=== PATIENT | male | born 1995 | race Caucasian/White ===

== ENCOUNTER 2017-09-02 13:03 | Inpatient (IN) | payer BC, OTHER ==
[~2017-09-02] VITALS: Ht 182.9 cm; Wt 80.6 kg
--- NOTE | 2017-09-02 13:36 | DIAGNOSTIC IMAGING REPORT ---
CHEST ONE VIEW PORTABLE CLINICAL HISTORY: CHEST PAIN COMPARISON STUDY: No previous studies for comparison. FINDINGS: There is a moderate size right pneumothorax. Superior pleural separation measures 3.8 cm. There is no left pneumothorax. No airspace opacities are identified. Cardiac size is normal. Pulmonary vascularity is normal. IMPRESSION: Moderate size right pneumothorax. Findings discussed with Dr. Wild at time of dictation. Electronically signed by: Darwin Corbett M.D. 09/02/2017 1:35 PM Dictated Date/Time: 09/02/2017 1:32 PM
[2017-09-02] MEDS ORDERED: FLUO20CA35 PO (13:49)
[2017-09-02] MEDS ORDERED: AMPH15CA7 PO (13:49)
[2017-09-02 14:07] LABS: BASO % 0.3 %; BASO ABS # 0.02 K/uL (0-0.2); EOS % 3.3 %; EOS ABS # 0.21 K/uL (0-0.5); HEMATOCRIT 43.9 % (42-52); IG# 0.01 K/uL (0.00-0.02); LYMPH % 35.4 %; LYMPH ABS # 2.24 K/uL (1.2-3.4); MEAN CELL VOLUME 86.2 fL (80-100); MEAN CORPUSCULAR HEMOGLOBIN 29.5 pg (25-34); MEAN CORPUSCULAR HGB CONC 34.2 g/dl (32-36); MEAN PLATELET VOLUME 9.7 fL (7.4-10.4); MONO % 7.8 %; MONO ABS # 0.49 K/uL (0.11-0.59); NEUT ABS # 3.35 K/uL (1.4-6.5); PLATELET COUNT 214 K/uL (130-400); RED CELL DISTRIBUTION WIDTH CV 12.7 % (11.5-14.5); RED CELL DISTRIBUTION WIDTH SD 40.6 fL (36.4-46.3); WHITE BLOOD COUNT 6.32 K/uL (4.8-10.8)
[2017-09-02 14:24] LABS: ALBUMIN 4.1 gm/dl (3.4-5.0); ALT/SGPT 30 U/L (12-78); BLOOD UREA NITROGEN 25 mg/dl (7-18); CALCIUM 9.4 mg/dl (8.5-10.1); CARBON DIOXIDE 28 mmol/L (21-32); CREATININE 1.09 mg/dl (0.60-1.40); GLUCOSE 76 mg/dl (70-99); LIPASE 149 U/L (73-393); POTASSIUM 4.1 mmol/L (3.5-5.1); SODIUM 136 mmol/L (136-145)
[2017-09-02 14:27] LABS: ALKALINE PHOSPHATASE 84 U/L (45-117); AST/SGOT 32 U/L (15-37); TOTAL PROTEIN 7.5 gm/dl (6.4-8.2)
--- NOTE | 2017-09-02 15:12 | DIAGNOSTIC IMAGING REPORT ---
CT OF THE CHEST WITHOUT IV CONTRAST CLINICAL HISTORY: Right pneumothorax. COMPARISON STUDY: Chest radiograph September 02, 2017 at 1:[address] DOSE: 337.52 mGy.cm TECHNIQUE: Axial images of the chest were obtained without IV contrast. Images were reviewed in the axial, sagittal, and coronal planes. IV contrast was not administered for this examination. A dose lowering technique was utilized adhering to the principles of ALARA. FINDINGS: There is a large right pneumothorax which occupies 60% of the right hemithorax. There is right lung volume loss as expected with atelectasis. No acute right rib fractures are identified although the inferior most right ribs were not imaged on this chest CT. There is a 5 mm subpleural lucency within the right lung apex shown on axial image 61 of 332. Left lung is clear. No axillary, mediastinal or hilar lymphadenopathy is present. Spleen is at upper limits of normal for size. Upper abdomen is otherwise unremarkable. IMPRESSION: Large right pneumothorax which occupies 60% of the right hemithorax, increased in size since prior chest radiograph. Findings discussed with Dr. Wild at time of dictation. No right rib fracture identified although inferior most aspect of right ribs not imaged on this exam. 5 mm tiny subpleural bleb within the right lung apex. While not definitive, this could potentially reflect the source for the pneumothorax. Electronically signed by: Darwin Corbett M.D. 09/02/2017 3:10 PM Dictated Date/Time: 09/02/2017 2:41 PM
[2017-09-02] MEDS ORDERED: LIDOCAINE/EPINEPHRINE 1% 20 ML VIAL INFIL ONE (16:30)
[2017-09-02] MEDS ORDERED: MoRPHine SULFATE 4 MG/ML 1 ML CARP\\VIAL IV PRN (17:30)
[2017-09-02] MEDS ORDERED: ONDANSETRON INJ 2 MG/ML 2 ML VIAL IV PRN (17:30)
--- NOTE | 2017-09-02 17:30 | DIAGNOSTIC IMAGING REPORT ---
CHEST ONE VIEW PORTABLE HISTORY: chest tube placement. COMPARISON: Chest 09/02/2017. FINDINGS: Interval decrease in size in the right pneumothorax status post chest tube placement. The small chest tube is located within the right mid lateral pleural space. Maximal pleural gap of the right pneumothorax measures 8 mm. Small linear density within the right midlung zone consistent with subsegmental atelectasis. The heart is normal in size. The left lung is clear. IMPRESSION: Significant decrease in size in the small right pneumothorax status post chest tube placement. The chest tube appears be located within the right mid lateral pleural space. Electronically signed by: Michael Mcclelland M.D. 09/02/2017 5:29 PM Dictated Date/Time: 09/02/2017 5:27 PM
[2017-09-02] MEDS ORDERED: MoRPHine SULFATE 4 MG/ML 1 ML CARP\\VIAL ONE (17:52)
[2017-09-02] MEDS ORDERED: ONDANSETRON INJ 2 MG/ML 2 ML VIAL ONE (17:52)
[2017-09-02] MEDS: OXYCODONE/ACETAMINOPHEN 5-325 TAB PO PRN ×2 (18:34→23:29)
[2017-09-02 19:20] VITALS: BP 138/81; PULSE 48; TEMP 36.6; O2SAT 97
--- NOTE | 2017-09-02 19:26 | HISTORY & PHYSICAL EXAMINATION ---
DATE OF ADMISSION: 09/02/2017 CHIEF COMPLAINT: Pain in the right lower thorax, upper abdomen. HISTORY OF PRESENT ILLNESS: This is a 21-year-old male who presented to the Emergency Room with a complaint of pain that was primarily on the right side in the lower thorax area mostly anterior. He stated earlier in the day. He felt an initial discomfort that he described as a "stitch of pain." However, as the day progressed, the pain increased. He then became somewhat short of breath. The shortness of breath is much worse with exertion. He denies previous history of similar pain. He had no cough or hemoptysis. He denied fever and chills. There was no trauma. 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 He had no nausea or vomiting. He underwent a chest x-ray that showed a moderate sized right pneumothorax. He then underwent a CT scan of the chest that showed a large right pneumothorax occupying 60% of the right hemithorax that seemed increased in size compared to the previous chest x-ray. There was no evidence of rib fracture. There appeared to possibly be a 5 mm subpleural blood within the right lung apex. This was not definitive; however. PAST MEDICAL HISTORY: None. PAST SURGICAL HISTORY: Repair of his right shoulder labrum and the right inguinal hernia, the latter of which was repaired when he was 11 years old. MEDICATIONS: Adderall and Prozac. ALLERGIES: None. SOCIAL HISTORY: He does not smoke. He does chew tobacco. He drinks alcohol on occasion. PHYSICAL EXAMINATION: GENERAL: Reveals a well-developed, well-nourished male who appears in no acute distress. VITAL SIGNS: Blood pressure 123/88, heart rate 55, respirations 18, temperature 37.2, pulse oximetry is 97% on room air. HEENT: Reveals his sclerae to be anicteric. Mucous membranes are moist. NECK: Supple with no adenopathy. BACK: He has no spinal or CVA tenderness. LUNGS: Decreased breath sounds on the right side, but there is no wheezing or rales. The left lung sounds are clear. ABDOMEN: Has normoactive bowel sounds, soft, nondistended, nontender. EXTREMITIES: Reveal no edema. LABORATORY DATA: WBC 6.32, H&H is 15.0 and 43.9, platelet count 214,000. Sodium 136, potassium 4.1, chloride 102, CO2 28, BUN 25, creatinine 1.09, glucose 76, AST 32, ALT 30, alkaline phosphatase 84. Radiology as per HPI. ASSESSMENT AND PLAN: This patient has a spontaneous large right pneumothorax. I placed a PLEUROCATH thoracostomy tube. I am awaiting repeat chest x-ray. His breathing is easier. I explained to him the procedure prior to that. I explained the possible complications. His father was present. He has signed a consent form. He is going to be admitted. We will keep chest tube on suction for today. I will plan to consult Dr. Alvarado. He will be given analgesics.
[2017-09-02 19:30] VITALS: BP 138/81; PULSE 48; TEMP 36.6; O2SAT 97; Ht 182.9 cm; Wt 80.6 kg
[2017-09-02] MEDS ORDERED: NURSING VERBAL MED ORDER ONE ×3 (19:30→22:00)
--- NOTE | 2017-09-02 19:34 | OPERATIVE REPORT ---
DATE OF OPERATION: 09/02/2017 PREOPERATIVE DIAGNOSIS: Right pneumothorax. POSTOPERATIVE DIAGNOSIS: Same. PROCEDURE: Placement of PLEUROCATH thoracostomy tube. SURGEON: Hector Chaudhary MD FINDINGS: The catheter was placed with ease. There was good air return as the catheter needle was being inserted. Chest x-ray is pending. There was no bleeding. TECHNIQUE: The patient was positioned and the area was prepped and draped in the usual sterile fashion. The fifth or sixth intercostal space was chosen in the mid axillary line. The skin and subcutaneous tissue was copiously anesthetized with 1% Xylocaine without epinephrine. The musculature and pleura were anesthetized. The floor was then easily entered and the catheter advanced. The needle was removed and was hooked to a Pleur-Evac. Chest x-ray is pending. The dressing was placed and it was sewn to the patient's skin. There were no complications. I attest to the content of the Intraoperative Record and any orders documented therein. Any exception s are noted below.
[2017-09-02] MEDS ORDERED: MoRPHine SULFATE 4 MG/ML 1 ML CARP\\VIAL IV STA ×2 (19:42→21:50)
--- NOTE | 2017-09-02 19:48 | DIAGNOSTIC IMAGING REPORT ---
CHEST ONE VIEW PORTABLE HISTORY: Atypical chest pain. COMPARISON: Chest x-ray and chest CT 09/02/2017. FINDINGS: Small right pneumothorax has slightly increased in size. This demonstrates a maximal pleural gap of 15 mm, previous measuring 8 mm. The right chest tube tip may be within the pleural space. However, the majority of the chest tube is within the chest wall. The left lung is clear. The heart is borderline enlarged. This remains unchanged. No mediastinal shift. IMPRESSION: 1. Interval increase in size in the small right pneumothorax. 2. Of note, the tip of the right chest tube may be within the pleural space. However, the majority of the chest tube is located within the chest wall. Therefore, this could represent a misplaced/nonfunctioning chest tube. Electronically signed by: Michael Mcclelland M.D. 09/02/2017 7:47 PM Dictated Date/Time: 09/02/2017 7:44 PM
--- NOTE | 2017-09-02 20:20 | EMERGENCY ROOM VISIT NOTE ---
History Report prepared by Daniel: Cecil Vela Under the Supervision of: Dr. Scott Wild M.D. First contact with patient: 13:14 Chief Complaint: SHORTNESS OF BREATH Stated Complaint: GALLBLADDER PAIN Nursing Triage Summary: triage note; pt reports pain in right ribs and difficulty breathing since 1230. pt also reports pain in right shoulder. pt denies any injury. pt reports pain increases with activity and "taking heavy breaths." History of Present Illness The patient is a 21 year old male who presents to the Emergency Room with complaints of shortness of breath that began 1 hour ago. He denies any known past medical history. 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 Prior to arrival, the patient was sitting down getting ready to go onto the lacrosse field when he began to feel short of breath. He had an associated sharp right pain to his right rib area that was exacerbated why exertion, speaking, and moving. He was given a muscle relaxer which relieved his pain, but was brought to the ER. The patient states that the last time he was struck to the right rib area was early this past fall. He has also been on injury reserve for the past two weeks secondary to a left hamstring injury. He denies any recent trauma or falls. Pt denies LOC, headache, fevers, chills, diaphoresis, visual changes, neck pain, nausea, vomiting, abdominal pain, back pain, melena, hematochezia, urinary symptoms, numbness, weakness, lymphadenopathy, rash, or other complaints. Source of History: patient Onset: 1 hour ago Position: other (Respiratory System) Symptom Intensity: moderate Quality: other (Shortness of breath) Timing: constant Associated Symptoms: + chest pain (right sided rib pain resolved with muscle relaxer) Review of Systems See HPI for pertinent positives and negatives. A total of ten systems were reviewed and were otherwise negative. Past Medical & Surgical Medical Problems: (1) No Known Active Medical Problems (2) Pneumothorax, right Family History Patient reports no known family medical history. Social History Smoking Status: Never Smoker Smokeless Tobacco Use: No Drug Use: none Marital Status: single Occupation Status: [employer] student Current/Historical Medications Scheduled Amphetamine-Dextroamphetamine 15MG (Adderall Xr 15MG), 15 MG PO DAILY Fluoxetine (Prozac), 20 MG PO DAILY Allergies Coded Allergies: No Known Allergies (Unverified , 09/02/17) Physical Exam Vital Signs Date Time Temp Pulse Resp B/P (MAP) Pulse Ox O2 Delivery O2 Flow Rate FiO2 09/02/17 17:20 140/117 09/02/17 17:18 72 14 09/02/17 17:13 62 19 09/02/17 17:10 145/80 09/02/17 17:08 68 18 09/02/17 17:03 73 17 100 09/02/17 17:00 139/69 09/02/17 16:58 82 25 100 09/02/17 16:53 81 15 100 09/02/17 16:50 151/82 09/02/17 16:49 149/83 09/02/17 16:48 67 15 100 09/02/17 16:43 83 12 99 09/02/17 16:38 60 11 98 09/02/17 16:33 68 15 98 09/02/17 16:28 65 19 96 09/02/17 16:23 54 17 96 09/02/17 16:18 50 15 97 09/02/17 16:13 47 17 97 09/02/17 16:08 47 10 96 09/02/17 16:03 58 15 98 09/02/17 15:58 50 14 97 09/02/17 15:53 51 13 97 09/02/17 15:48 46 22 98 09/02/17 15:43 48 15 96 09/02/17 15:38 52 13 95 09/02/17 15:33 49 13 96 09/02/17 15:28 53 17 98 09/02/17 15:23 53 14 97 09/02/17 15:18 62 16 97 09/02/17 15:13 56 14 97 09/02/17 15:08 59 17 96 09/02/17 15:03 57 15 97 09/02/17 14:58 62 15 98 09/02/17 14:53 57 14 97 09/02/17 14:48 53 15 98 09/02/17 14:43 65 16 94 09/02/17 14:28 50 13 97 09/02/17 14:18 61 21 98 09/02/17 14:13 57 18 98 09/02/17 14:08 63 12 123/88 96 1/27/18 14:06 37.2 55 18 123/88 97 Non-Rebreather 15.0 09/02/17 14:03 60 15 98 09/02/17 13:58 54 11 98 09/02/17 13:53 69 24 98 09/02/17 13:48 59 19 98 09/02/17 13:43 72 9 100 09/02/17 13:42 82 09/02/17 13:39 96 Room Air 09/02/17 13:39 96 Room Air 09/02/17 13:05 36.6 63 18 141/83 100 Room Air Physical Exam GENERAL: Awake, alert, mildly uncomfortable appearing, in no distress HENT: Normocephalic, atraumatic. Oropharynx unremarkable. EYES: Normal conjunctiva. Sclera non-icteric. NECK: Supple. No nuchal rigidity. FROM. No JVD. RESPIRATORY: Clear to auscultation. CARDIAC: Regular rate, normal rhythm. Extremities warm and well perfused. Pulses equal. ABDOMEN: Soft, non-distended. No tenderness to palpation. No rebound or guarding. No masses. RECTAL: Deferred. MUSCULOSKELETAL: Chest examination reveals no tenderness. The back is symmetrical on inspection without obvious abnormality. There is no CVA tenderness to palpation. No joint edema. LOWER EXTREMITIES: Calves are equal size bilaterally and non-tender. No edema. No discoloration. NEURO: Normal sensorium. No sensory or motor deficits noted. SKIN: No rash or jaundice noted. Medical Decision & Procedures ER Provider Diagnostic Interpretation: Radiology results as stated below per my review and radiologist interpretation: CHEST ONE VIEW PORTABLE CLINICAL HISTORY: CHEST PAIN COMPARISON STUDY: No previous studies for comparison. FINDINGS: There is a moderate size right pneumothorax. Superior pleural separation measures 3.8 cm. There is no left pneumothorax. No airspace opacities are identified. Cardiac size is normal. Pulmonary vascularity is normal. IMPRESSION: Moderate size right pneumothorax. Findings discussed with Dr. Wild at time of dictation. Electronically signed by: Darwin Corbett M.D. 09/02/2017 1:35 PM Dictated Date/Time: 09/02/2017 1:[address] OF THE CHEST WITHOUT IV CONTRAST CLINICAL HISTORY: Right pneumothorax. COMPARISON STUDY: Chest radiograph September 02, 2017 at 1:[address] DOSE: 337.52 mGy.cm TECHNIQUE: Axial images of the chest were obtained without IV contrast. Images were reviewed in the axial, sagittal, and coronal planes. IV contrast was not administered for this examination. A dose lowering technique was utilized adhering to the principles of ALARA. FINDINGS: There is a large right pneumothorax which occupies 60% of the right hemithorax. There is right lung volume loss as expected with atelectasis. No acute right rib fractures are identified although the inferior most right ribs were not imaged on this chest CT. There is a 5 mm subpleural lucency within the right lung apex shown on axial image 61 of 332. Left lung is clear. No axillary, mediastinal or hilar lymphadenopathy is present. Spleen is at upper limits of normal for size. Upper abdomen is otherwise unremarkable. IMPRESSION: Large right pneumothorax which occupies 60% of the right hemithorax, increased in size since prior chest radiograph. Findings discussed with Dr. Wild at time of dictation. No right rib fracture identified although inferior most aspect of right ribs not imaged on this exam. 5 mm tiny subpleural bleb within the right lung apex. While not definitive, this could potentially reflect the source for the pneumothorax. Electronically signed by: Darwin Corbett M.D. 09/02/2017 3:10 PM Dictated Date/Time: 09/02/2017 2:41 PM Laboratory Results 09/02/17 13:25 Red Blood Count 5.09, Mean Corpuscular Volume 86.2, Mean Corpuscular Hemoglobin 29.5, Mean Corpuscular Hemoglobin Concent 34.2, Mean Platelet Volume 9.7, Neutrophils (%) (Auto) 53.0, Lymphocytes (%) (Auto) 35.4, Monocytes (%) (Auto) 7.8, Eosinophils (%) (Auto) 3.3, Basophils (%) (Auto) 0.3, Neutrophils # (Auto) 3.35, Lymphocytes # (Auto) 2.24, Monocytes # (Auto) 0.49, Eosinophils # (Auto) 0.21, Basophils # (Auto) 0.02 09/02/17 13:25 Test 09/02/17 13:25 09/02/17 13:42 White Blood Count 6.32 K/uL (4.8-10.8) Red Blood Count 5.09 M/uL (4.7-6.1) Hemoglobin 15.0 g/dL (14.0-18.0) Hematocrit 43.9 % (42-52) Mean Corpuscular Volume 86.2 fL (80-100) Mean Corpuscular Hemoglobin 29.5 pg (25-34) Mean Corpuscular Hemoglobin Concent 34.2 g/dl (32-36) Platelet Count 214 K/uL (130-400) Mean Platelet Volume 9.7 fL (7.4-10.4) Neutrophils (%) (Auto) 53.0 % Lymphocytes (%) (Auto) 35.4 % Monocytes (%) (Auto) 7.8 % Eosinophils (%) (Auto) 3.3 % Basophils (%) (Auto) 0.3 % Neutrophils # (Auto) 3.35 K/uL (1.4-6.5) Lymphocytes # (Auto) 2.24 K/uL (1.2-3.4) Monocytes # (Auto) 0.49 K/uL (0.11-0.59) Eosinophils # (Auto) 0.21 K/uL (0-0.5) Basophils # (Auto) 0.02 K/uL (0-0.2) RDW Standard Deviation 40.6 fL (36.4-46.3) RDW Coefficient of Variation 12.7 % (11.5-14.5) Immature Granulocyte % (Auto) 0.2 % Immature Granulocyte # (Auto) 0.01 K/uL (0.00-0.02) Anion Gap 6.0 mmol/L (3-11) Est Creatinine Clear Calc Drug Dose 116.7 ml/min Estimated GFR () 111.1 Estimated GFR (Non- 95.8 BUN/Creatinine Ratio 23.3 (10-20) Calcium Level 9.4 mg/dl (8.5-10.1) Total Bilirubin 0.5 mg/dl (0.2-1) Direct Bilirubin < 0.1 mg/dl (0-0.2) Aspartate Amino Transf (AST/SGOT) 32 U/L (15-37) Alanine Aminotransferase (ALT/SGPT) 30 U/L (12-78) Alkaline Phosphatase 84 U/L (45-117) Total Protein 7.5 gm/dl (6.4-8.2) Albumin 4.1 gm/dl (3.4-5.0) Lipase 149 U/L (73-393) Bedside D-Dimer 20 ng/mlFEU (0-450) Bedside Troponin I < 0.030 ng/ml (0-0.045) Laboratory results reviewed by me Medications Administered Medications (Trade) Dose Ordered Sig/Jose Alberto Route Start Time Stop Time Status Last Admin Dose Admin Oxycodone/ Acetaminophen (Percocet 5-325mg Tab) 1 tab Q4H PRN PO 09/02/17 17:30 09/16/17 17:29 09/02/17 18:34 1 TAB ECG Indication: chest pain Rate (beats per minute): 59 Rhythm: sinus bradycardia Findings: other (right axis deviation, early repolarization) Change: ECG interpreted by me ED Course 1314: The patient was evaluated in room A4. A complete history and physical exam was performed. 1332: I was called Dr. Corbett of Radiology at this time who informed me that the patient has a right-sided partial pneumothorax. 1515: Upon reevaluation, the patient feels like he is breathing more easily and is resting comfortably. 1540: Dr. Chaudhary of Surgery and I discussed the patient's case. We reviewed the patient's radiology scans. We will attempt to contact Dr. Wallace of Thoracic Surgery if they are available. 1606: The patient remains well and is in no pain. 1617: Dr. Wallace is unavailable. Dr. Chaudhary with take over care for the patient. I discussed this with the patient and his father. They are agreeable. 1630: Ordered Lidocaine/Epinephrine 20 ml INFIL Medical Decision Prior records/ancillary studies reviewed. Triage Nursing notes reviewed and agree them. Additional history obtained from the family. The patient's history was concerning for chest pain. Differential diagnosis: Etiologies such as pneumonia, pneumothorax, musculoskeletal, cardiac ischemia, aortic dissection, pulmonary embolism,infections, pericarditis, myocarditis, esophageal rupture, gastrointestinal, as well as others were entertained. Physical examination: As above. ER treatment provided: Patient declined analgesia Nonrebreather Diagnostic interpretation by me: The electrocardiogram was negative for pathologic change. The labs revealed an unremarkable CBC and character panel. Cardiac markers negative. D-dimer negative. Imaging studies: Chest x-ray and CT scan as above The patient has a spontaneous pneumothorax. Consultation: A consultation was placed with the general surgeon on-call, Dr. Chaudhary. The case was discussed and diagnostics were reviewed. The patient was evaluated in the ER for further treatment. Medication Reconcilliation Current Medication List: was personally reviewed by me Blood Pressure Screening Patient's blood pressure: Normal blood pressure Blood pressure disposition: Did not require urgent referral Consults Time Called: 1535 Consulting Physician: Dr. Chaudhary - General Surgery Returned Call: [phone] Discussed the patient's case. We will attempt to contact Dr. Wallace of Thoracic Surgery. 1617: Dr. Wallace is unavailable. Dr. Chaudhary will be taking over care for the patient. Impression Primary Impression: Pneumothorax, right Scribe Attestation The scribe's documentation has been prepared under my direction and personally reviewed by me in its entirety. I confirm that the note above accurately reflects all work, treatment, procedures, and medical decision making performed by me. Departure Information Dispostion Being Evaluated By Surgeon Referrals No Doctor, Assigned (PCP) Patient Instructions [facility]
[2017-09-02] MEDS ORDERED: IV FLUIDS COMPLETED PRN (20:45)
--- NOTE | 2017-09-02 21:52 | DIAGNOSTIC IMAGING REPORT ---
CHEST ONE VIEW PORTABLE HISTORY: Evaluate chest tube and pneumothorax. COMPARISON: Chest 09/02/2017. A small right pneumothorax has slightly decreased in size. This now demonstrates a maximal apical 1 cm, previous measuring 1.5 cm. The tip of the small caliber right-sided chest tube appears to be at but not clearly within the right pleural space. This is unchanged in position. The left lung remains clear. The heart remains borderline enlarged. No mediastinal shift. No pleural effusions. FINDINGS: The lungs are clear. Cardiac silhouette is normal in size. No pleural effusions. No pneumothorax. IMPRESSION: 1. Slight decrease in size in the small right pneumothorax. 2. No change in position of the right-sided chest tube. The tip appears to be at but not clearly within the right pleural space. Electronically signed by: Michael Mcclelland M.D. 09/02/2017 9:50 PM Dictated Date/Time: 09/02/2017 9:48 PM
[2017-09-02] MEDS: D5W AND 1/2NSS + 20MEQ KCL 1,000 ML IV SCH (22:07)
[2017-09-02] MEDS: MoRPHine SULFATE 2 MG/ML CARP IV PRN (22:37)
[2017-09-02 23:00] VITALS: BP 118/59; PULSE 44; TEMP 36.4; O2SAT 96
[2017-09-03] MEDS: MoRPHine SULFATE 2 MG/ML CARP IV PRN ×9 (01:59→23:32)
[2017-09-03 03:50] VITALS: BP 108/55; PULSE 51; TEMP 36.4; O2SAT 96
[2017-09-03 07:30] VITALS: BP 112/68; PULSE 45; TEMP 36.6; O2SAT 97
--- NOTE | 2017-09-03 10:29 | Surgery Progress Note ---
Surgery Progress Note Date of Service Sep 03, 2017. Subjective + feeling well, No SOB, No nausea, No vomiting No cough Objective Vital Signs: Date Time Temp Pulse Resp B/P (MAP) Pulse Ox O2 Delivery O2 Flow Rate FiO2 09/03/17 07:45 Room Air 09/03/17 07:30 36.6 45 16 112/68 (83) 97 Room Air 09/03/17 03:50 36.4 51 16 108/55 (72) 96 Room Air 09/02/17 23:30 Room Air 09/02/17 23:00 36.4 44 16 118/59 (78) 96 Room Air 09/02/17 19:30 36.6 48 38 138/81 97 Room Air 09/02/17 19:20 36.6 48 38 138/81 (100) 97 Room Air 09/02/17 18:51 52 17 144/96 97 Room Air 09/02/17 17:20 140/117 09/02/17 17:18 72 14 09/02/17 17:13 62 19 09/02/17 17:10 145/80 09/02/17 17:08 68 18 09/02/17 17:03 73 17 100 09/02/17 17:00 139/69 09/02/17 16:58 82 25 100 09/02/17 16:53 81 15 100 09/02/17 16:50 151/82 09/02/17 16:49 149/83 09/02/17 16:48 67 15 100 09/02/17 16:43 83 12 99 09/02/17 16:38 60 11 98 09/02/17 16:33 68 15 98 09/02/17 16:28 65 19 96 09/02/17 16:23 54 17 96 09/02/17 16:18 50 15 97 09/02/17 16:13 47 17 97 09/02/17 16:08 47 10 96 09/02/17 16:03 58 15 98 09/02/17 15:58 50 14 97 09/02/17 15:53 51 13 97 09/02/17 15:48 46 22 98 09/02/17 15:43 48 15 96 09/02/17 15:38 52 13 95 09/02/17 15:33 49 13 96 09/02/17 15:28 53 17 98 09/02/17 15:23 53 14 97 09/02/17 15:18 62 16 97 09/02/17 15:13 56 14 97 09/02/17 15:08 59 17 96 09/02/17 15:03 57 15 97 09/02/17 14:58 62 15 98 09/02/17 14:53 57 14 97 09/02/17 14:48 53 15 98 09/02/17 14:43 65 16 94 09/02/17 14:28 50 13 97 09/02/17 14:18 61 21 98 09/02/17 14:13 57 18 98 09/02/17 14:08 63 12 123/88 96 09/02/17 14:06 37.2 55 18 123/88 97 Non-Rebreather 15.0 09/02/17 14:03 60 15 98 09/02/17 13:58 54 11 98 09/02/17 13:53 69 24 98 09/02/17 13:48 59 19 98 09/02/17 13:43 72 9 100 09/02/17 13:42 82 09/02/17 13:39 96 Room Air 09/02/17 13:39 96 Room Air 09/02/17 13:05 36.6 63 18 141/83 100 Room Air General Appearance: WD/WN Respiratory/Chest: + rhonchi (scattered on right but breath sounds audible) Laboratory Results: Results Past 24 Hours Test 09/02/17 13:25 09/02/17 13:42 Range/Units White Blood Count 6.32 4.8-10.8 K/uL Red Blood Count 5.09 4.7-6.1 M/uL Hemoglobin 15.0 14.0-18.0 g/dL Hematocrit 43.9 42-52 % Mean Corpuscular Volume 86.2 80-100 fL Mean Corpuscular Hemoglobin 29.5 25-34 pg Mean Corpuscular Hemoglobin Concent 34.2 32-36 g/dl Platelet Count 214 130-400 K/uL Mean Platelet Volume 9.7 7.4-10.4 fL Neutrophils (%) (Auto) 53.0 % Lymphocytes (%) (Auto) 35.4 % Monocytes (%) (Auto) 7.8 % Eosinophils (%) (Auto) 3.3 % Basophils (%) (Auto) 0.3 % Neutrophils # (Auto) 3.35 1.4-6.5 K/uL Lymphocytes # (Auto) 2.24 1.2-3.4 K/uL Monocytes # (Auto) 0.49 0.11-0.59 K/uL Eosinophils # (Auto) 0.21 0-0.5 K/uL Basophils # (Auto) 0.02 0-0.2 K/uL RDW Standard Deviation 40.6 36.4-46.3 fL RDW Coefficient of Variation 12.7 11.5-14.5 % Immature Granulocyte % (Auto) 0.2 % Immature Granulocyte # (Auto) 0.01 0.00-0.02 K/uL Sodium Level 136 136-145 mmol/L Potassium Level 4.1 3.5-5.1 mmol/L Chloride Level 102 98-107 mmol/L Carbon Dioxide Level 28 21-32 mmol/L Anion Gap 6.0 3-11 mmol/L Blood Urea Nitrogen 25 7-18 mg/dl Creatinine 1.09 0.60-1.40 mg/dl Est Creatinine Clear Calc Drug Dose 116.7 ml/min Estimated GFR () 111.1 Estimated GFR (Non- 95.8 BUN/Creatinine Ratio 23.3 10-20 Random Glucose 76 70-99 mg/dl Calcium Level 9.4 8.5-10.1 mg/dl Total Bilirubin 0.5 0.2-1 mg/dl Direct Bilirubin < 0.1 0-0.2 mg/dl Aspartate Amino Transf (AST/SGOT) 32 15-37 U/L Alanine Aminotransferase (ALT/SGPT) 30 12-78 U/L Alkaline Phosphatase 84 45-117 U/L Total Protein 7.5 6.4-8.2 gm/dl Albumin 4.1 3.4-5.0 gm/dl Lipase 149 73-393 U/L Bedside D-Dimer 20 0-450 ng/mlFEU Bedside Troponin I < 0.030 0-0.045 ng/ml Assessment & Plan S/P placement of thoracostomy tube for right spontaneous pneumothorax CXR pending If lung expanded will place chest tube to water seal Consult Dr. Alvarado in AM
--- NOTE | 2017-09-03 10:59 | DIAGNOSTIC IMAGING REPORT ---
CHEST ONE VIEW PORTABLE CLINICAL HISTORY: Continuing evaluation of pneumothorax. COMPARISON STUDY: Chest radiograph September 02, 2017 at 9:16 PM. FINDINGS: The tip of the right pleural catheter is now located within the right chest wall. This has been withdrawn since previous exam. A right-sided pneumothorax has increased in size since exam of September 02, 2017 at 9:16 PM. Superior pleural separation now measures 2.6 cm. It previously measured 1 cm. Cardiac size is normal. There is no evidence for pulmonary edema. IMPRESSION: Tip of right pleural catheter now located within the right chest wall. Moderate increase in size of a small right pneumothorax with pleural separation of 2.[address] Chaudhary at time of dictation. Electronically signed by: Darwin Corbett M.D. 09/03/2017 10:58 AM Dictated Date/Time: 09/03/2017 10:38 AM
[2017-09-03 15:15] VITALS: O2SAT 96
[2017-09-03 15:20] VITALS: BP 128/76; PULSE 51; TEMP 36.8; O2SAT 96
[2017-09-03] MEDS: OXYCODONE/ACETAMINOPHEN 5-325 TAB PO PRN ×2 (15:23→19:33)
[2017-09-03] MEDS: D5W AND 1/2NSS + 20MEQ KCL 1,000 ML IV SCH (19:30)
[2017-09-03 23:00] VITALS: BP 110/56; PULSE 51; TEMP 36.5; O2SAT 97
[2017-09-04] VITALS (9 sets, daily range): BP systolic 116–133; BP diastolic 53–78; PULSE 52–75; TEMP 36.5–36.7; O2SAT 95–98
--- NOTE | 2017-09-04 06:54 | History & Physical Bridge Note ---
H&P Re-Evaluation Bridge Note: I have examined the patient, reviewed the History & Physical and in the interval since the performance of the History & Physical I have noted the following changes of clinical significance: No changes noted
[2017-09-04] MEDS ORDERED: MIDAZOLAM HCL 1 MG/ML 2ML VIAL ONE (06:55)
[2017-09-04] MEDS ORDERED: FENTANYL CITRATE INJ 50 MCG/1 ML 2 ML VIAL ONE (06:56)
[2017-09-04] MEDS ORDERED: HYDROmorphone INJ 1 MG/ML SYR IV PRN (07:00)
[2017-09-04] MEDS ORDERED: EpHEDrine SULFATE INJ 50 MG/ML AMP IV PRN (07:00)
[2017-09-04] MEDS ORDERED: FENTANYL CITRATE INJ 50 MCG/1 ML 2 ML VIAL IV PRN (07:00)
[2017-09-04] MEDS ORDERED: ATROPINE SULFATE 0.1 MG/ML 5ML SYR IV PRN (07:00)
[2017-09-04] MEDS ORDERED: ONDANSETRON INJ 2 MG/ML 2 ML VIAL IV PRN ×2 (07:00→08:45)
[2017-09-04] MEDS ORDERED: BUPIVACAINE LIPOSOME 1/3% 266 MG/20 ML VIAL INFIL ONE (07:11)
[2017-09-04] MEDS ORDERED: SODIUM CHLORIDE 0.9% PF 50 ML VIAL ONE ×2 (07:11→07:15)
[2017-09-04] MEDS ORDERED: BUPIVACAINE 0.5 % 5 MG/1 ML MPF 30ML VIAL ONE (07:15)
[2017-09-04] MEDS ORDERED: SODIUM CHLORIDE 0.9% INJ 10 ML VIAL ONE (07:15)
[2017-09-04] MEDS ORDERED: LIDOCAINE HCL 2% 2 ML VIAL (20MG/ML) ONE (07:51)
[2017-09-04] MEDS ORDERED: GLYCOPYRROLATE INJ 0.2 MG/ML VIAL ONE (07:51)
[2017-09-04] MEDS ORDERED: DEXAMETHASONE SOD INJ 4 MG/ML VIAL ONE (07:51)
[2017-09-04] MEDS ORDERED: NEOSTIGMINE METHYLSULFATE 5 MG/5 ML SYR ONE (07:51)
[2017-09-04] MEDS ORDERED: CEFAZOLIN SOD 1 GM VIAL ONE (07:51)
[2017-09-04] MEDS ORDERED: PROPOFOL IV EMULSION 10 MG/ML 20 ML VIAL IV ONE (07:51)
[2017-09-04] MEDS ORDERED: ONDANSETRON INJ 2 MG/ML 2 ML VIAL ONE (07:51)
[2017-09-04] MEDS ORDERED: EpHEDrine SULFATE 50MG/5ML SYR ONE (08:21)
--- NOTE | 2017-09-04 08:38 | [facility] Post Operative Brief Note ---
Immediate Operative Summary Operative Date Sep 04, 2017. Pre-Operative Diagnosis Right spontaneous pneumothorax Post-Operative Diagnosis same as preop Procedure(s) Performed Right thorascopy with wedge resection of apical blebs, limited apical pleurectomy Surgeon Dr. Alvarado Shale Processing Technician Surgeon(s) Dexter Martin PA-C Estimated Blood Loss 5 ml Findings Consistent with Post-Op Diagnosis Specimens A: [place] of right upper lobe, sent fresh B: Parietal plueua, sent fresh Anesthesia Type General
[2017-09-04] MEDS ORDERED: MoRPHine SULFATE 2 MG/ML CARP IV PRN (08:45)
[2017-09-04] MEDS ORDERED: OXYCODONE HCL IR 5 MG TAB (IMMEDIATE RELEASE) PO PRN (08:45)
[2017-09-04] MEDS ORDERED: D5W AND 1/2NSS 1,000 ML IV SCH (09:00)
--- NOTE | 2017-09-04 09:16 | Anesthesiology Progress Note ---
Anesthesia Post Op Note Date & Time Sep 04, 2017 at 09:16 Vital Signs Vital Signs Past 12 Hours Date Time Temp Pulse Resp B/P (MAP) Pulse Ox O2 Delivery O2 Flow Rate FiO2 09/04/17 06:15 36.5 55 16 121/76 (91) 97 Room Air 09/03/17 23:25 Nasal Cannula 1.0 09/03/17 23:00 36.5 51 16 110/56 (74) 97 Nasal Cannula 1.0 Notes Mental Status: alert / awake / arousable, participated in evaluation Pt Amnestic to Procedure: Yes Nausea / Vomiting: adequately controlled Pain: adequately controlled Airway Patency, RR, SpO2: stable & adequate BP & HR: stable & adequate Hydration State: stable & adequate Anesthetic Complications: no major complications apparent
--- NOTE | 2017-09-04 09:17 | DIAGNOSTIC IMAGING REPORT ---
CHEST ONE VIEW PORTABLE CLINICAL HISTORY: Pneumothorax. COMPARISON STUDY: Chest radiograph September 03, 2017 at 10:27 AM. FINDINGS: There has been interval placement of a right sided chest tube with small amount of gas within the chest wall at insertion site. The right pneumothorax shown on prior exam has markedly decreased in size. There is a possible small right apical pneumothorax. Cardiomediastinal silhouette is normal. Pulmonary vascularity is normal. IMPRESSION: Interval placement of a right sided chest tube with near complete resolution of the right pneumothorax. Possible small right apical pneumothorax. Electronically signed by: Darwin Corbett M.D. 09/04/2017 9:16 AM Dictated Date/Time: 09/04/2017 9:14 AM
--- NOTE | 2017-09-04 09:40 | OPERATIVE REPORT ---
DATE OF OPERATION: 09/04/2017 PREOPERATIVE DIAGNOSIS: Spontaneous right pneumothorax. POSTOPERATIVE DIAGNOSIS: Same. PROCEDURE: 1. Right thoracoscopy with apical bleb resection. 2. Limited right apical parietal pleurectomy. SURGEON: Dr. Alvarado. RAIL LAYER: ABIGAIL Preciado. (Mr. Martin was present for the entire case and was instrumental in holding the camera and first assisting and closed the skin incisions at the conclusion of the case.) ANESTHESIA: General anesthesia with endotracheal intubation using single lumen tube. INDICATION FOR PROCEDURE AND FINDINGS: Mr. Winslow is a 21-year-old senior at [employer], who suffered a spontaneous pneumothorax on 09/02/2017. He underwent insertion of a small Pneumocath; however, this recurred with dislodgement which had to be replaced. I was asked to see him yesterday on 09/03/2017. CT scan showed a small apical bleb medially on the apex of the right lung. I had a long talk with the patient and his parents, and we elected to proceed with a right thoracoscopy for evaluation and probable right apical bleb resection. On 09/04/2017, the patient was brought to the operating room and I performed an uncomplicated thoracoscopy with a 5 mm scope. We did not use any monitoring lines, Alan catheter, and used a single lumen tube with CO2 insufflation. I was able to see and very nicely inspected all 3 lobes quite closely. There was some thickening of the medial aspect but not a large bleb or bulla. I did an apical wedge resection, saw no evidence of an air leak after we inflated the lung. I then did a limited pleurectomy apically. The rest of his lungs appeared to be pristine. He tolerated it well. I did do an Exparel block. PROCEDURE IN DETAIL: The patient brought to the operating room, laid in supine position. General anesthesia induced and endotracheal intubation was performed with single lumen tube. The patient was turned in left lateral decubitus position. Right chest prepped and draped in usual sterile fashion after we had removed the original Pneumocath. I used this same incision to put a 5 mm port, and upon placing the scope, it could be seen that there were no adhesions. I did not see an obvious bleb, we had collapsed the lung. I insufflated CO2. I then placed a 5 mm port in the auscultatory triangle, posterior and inferior to the tip of scapula. I then placed a 12 mm port, down near just above the diaphragm, a bit anterior to anterior axillary line. I then placed Kitner's, and using 5 mm clamps, I slowly and meticulously viewed every portion of the lung. I did not see an obvious bleb except for some thickening along the medial aspect of the apex of the right upper lobe. I then used an Endo-MARIAN stapler and fired it twice to remove a small wedge to include this area. We then inspected the staple line and there was no bleeding and there was no air leak. I then performed apical pleurectomy by removing a small portion of the pleura from about the fourth interspace superiorly. This came off without difficulty, really got into no bleeding. 266 mg of Exparel was mixed with 30 mL of 0.5% bupivacaine and 100 mL of normal saline and this was used to perform an intercostal block from the 2nd to the 12th rib. I also used this to inject the chest tube sites and the incision sites. A 16-Lithuanian chest tube was placed through the 12 mm port after the muscle layer had been closed. This was done without difficulty and directed toward the apex. I used warm saline in the chest and inflated the lung, I saw no evidence of a leak. We then sutured in this chest tube with a heavy silk suture. 4-0 Monocryl was used in running subcuticular fashion to approximate the wound edges. He tolerated it well with negligible blood loss. He was transported back to the post-anesthesia care unit in stable condition. I attest to the content of the Intraoperative Record and any orders documented therein. Any exception s are noted below.
[2017-09-04] MEDS: DOCUSATE SODIUM 100 MG CAP PO SCH ×2 (10:07→20:42)
[2017-09-04] MEDS: ACETAMINOPHEN IV 1,000 MG in EMPTY BAG 0 ML IV SCH ×2 (10:07→16:49)
[2017-09-04] MEDS: KETOROLAC TROMETHAMINE 15 MG/ML VIAL IV. SCH ×2 (10:08→16:49)
--- NOTE | 2017-09-04 11:55 | SURGICAL CONSULTATION ---
DATE OF CONSULTATION: 09/03/2017 REFERRING PHYSICIAN: Dr. Hector Chaudhary. REASON FOR CONSULTATION: Spontaneous right pneumothorax. HISTORY OF PRESENT ILLNESS: Chato Winslow is a 21-year-old nonsmoker who really has no significant past medical history other than a right shoulder injury, who developed right-sided chest pain yesterday and was admitted with a spontaneous right pneumothorax. He had a small Pneumocath placed and this became dislodged. He is on room air and really looks good otherwise. I saw him on the morning of 09/03/2017, had a long discussion with the patient and his father. PAST MEDICAL HISTORY: 1. Injury to right shoulder. 2. Right inguinal hernia. 3. Spontaneous right pneumothorax. 4. Questionable ADHD. PAST SURGICAL HISTORY: 1. Repair of right shoulder labrum. 2. Right inguinal herniorrhaphy. MEDICATIONS: 1. Adderall. 2. Prozac. ALLERGIES: No known drug allergies. SOCIAL HISTORY: The patient is originally from [facility]. He is a senior here at [employer] and is a member of the [employer] team. He lives with his mother and father when he is not at school. He has never smoked cigarettes. Does chew tobacco. Occasionally, he will have an alcoholic beverage. FAMILY MEDICAL HISTORY: No one in his family has had a spontaneous pneumothorax. REVIEW OF SYSTEMS: The patient was perfectly fine until this occurred. Ten systems were reviewed and all were negative. PHYSICAL EXAMINATION: GENERAL: This is a 6-foot, 178-pound male who is awake, alert and oriented. HEENT: Extraocular movements are intact. Pupils are equal, round and reactive. Sclerae are anicteric. Teeth are in good repair, tongue is midline. He has no neck vein distention, thyromegaly or lymphadenopathy. He has no tracheal deviation. LUNGS: Actually moving air well on both sides. I really do not hear much in the way of decreased breath sounds on the right. He has a Pneumocath on the right side. HEART: He has regular rate and rhythm of his heart. He has no subcutaneous emphysema. ABDOMEN: Flat, soft, nontender. EXTREMITIES: He has no peripheral edema. He has excellent peripheral pulses. No joint effusions or peripheral edema. NEUROLOGIC: He is completely intact. DATA: I reviewed his CT scan. I think there is a small bleb in the medial aspect of the right apex. ASSESSMENT AND PLAN: Spontaneous pneumothorax. Rather than try to manipulate another tube, I am going to go ahead and leave this tube as it is and I am going to take him to the operating room and do a bleb resection tomorrow. I had a long talk with the patient and his father and discussed it with his mother on the phone. Thank you very much.
[2017-09-04] MEDS: METOCLOPRAMIDE HCL INJ 5 MG/ML 2 ML VIAL IV. SCH ×2 (13:51→22:00)
[2017-09-04] MEDS: CEFAZOLIN IV 2,000 MG in SYRINGE 0 ML IV SCH (15:56)
[2017-09-05] MEDS: CEFAZOLIN IV 2,000 MG in SYRINGE 0 ML IV SCH (00:01)
[2017-09-05] MEDS: ACETAMINOPHEN IV 1,000 MG in EMPTY BAG 0 ML IV SCH ×2 (01:25→08:26)
[2017-09-05] MEDS: KETOROLAC TROMETHAMINE 15 MG/ML VIAL IV. SCH ×2 (01:25→08:24)
[2017-09-05 01:50] VITALS: BP 133/65; PULSE 62; TEMP 36.7; O2SAT 96
[2017-09-05] MEDS: METOCLOPRAMIDE HCL INJ 5 MG/ML 2 ML VIAL IV. SCH (06:00)
[2017-09-05 06:12] VITALS: BP 122/60; PULSE 54; TEMP 36.4; O2SAT 95
--- NOTE | 2017-09-05 06:46 | DIAGNOSTIC IMAGING REPORT ---
CHEST ONE VIEW PORTABLE CLINICAL HISTORY: Pneumothorax. COMPARISON STUDY: Chest radiograph September 04, 2017. FINDINGS: A right lateral apical chest tube is in place. There is minimal gas within the chest wall at the insertion site. There is a suspected trace right apical pneumothorax which is decreased in size. Cardiac size is normal. Lungs are clear. IMPRESSION: Right chest tube in place. Suspected trace right apical pneumothorax which has decreased in size. Electronically signed by: Darwin Corbett M.D. 09/05/2017 6:44 AM Dictated Date/Time: 09/05/2017 6:43 AM
[2017-09-05] MEDS ORDERED: NURSING VERBAL MED ORDER ONE (07:15)
[2017-09-05 07:44] LABS: INR 1.1 (0.9-1.1)
--- NOTE | 2017-09-05 08:00 | DIAGNOSTIC IMAGING REPORT ---
CHEST ONE VIEW PORTABLE CLINICAL HISTORY: Status post chest tube removal. COMPARISON STUDY: Chest radiograph September 05, 2017 at 6:03 AM. FINDINGS: A small right apical pneumothorax is noted with superior pleural separation of 8 mm. Right chest tube has been removed. Cardiac size is normal. Mediastinal contours are unremarkable. IMPRESSION: Small right apical pneumothorax. Interval chest tube removal. Electronically signed by: Darwin Corbett M.D. 09/05/2017 7:58 AM Dictated Date/Time: 09/05/2017 7:53 AM
[2017-09-05] MEDS: DOCUSATE SODIUM 100 MG CAP PO SCH (08:25)
[2017-09-05] MEDS ORDERED: ULT/50 PO (08:26)
--- NOTE | 2017-09-05 08:26 | Discharge Instructions ---
Discharge Instructions Date of Service Sep 05, 2017. Admission Reason for Admission: Pneumothorax, Right Discharge Discharge Diagnosis / Problem: Pneumothorax, Right Discharge Goals Goal(s): Decrease discomfort, Improve function Activity Recommendations Activity Limitations: resume your previous activity 1. Do not fly until cleared to do so by Dr. Alvarado. 2. You may remove dressings in 3 days and shower thereafter. No tub baths. 3. Do not drive if taking ultram. 4. Do not drive until cleared to do so by Dr. Alvarado. . Instructions / Follow-Up Instructions / Follow-Up 1. Office appointment with Dr. Alvarado in 1 week. Office will call with date and time of appointment. Go to hospital 1 hour before appointment to have a chest x-ray taken. Current Hospital Diet Patient's current hospital diet: Regular Diet Discharge Diet Recommended Diet: Regular Diet Procedures Procedures Performed: Right thorascopy with wedge resection of apical blebs, limited apical pleurectomy Pending Studies Studies pending at discharge: no Medical Emergencies . Who to Call and When: Medical Emergencies: If at any time you feel your situation is an emergency, please call 911 immediately. . Non-Emergent Contact Non-Emergency issues call your: Surgeon Call Non-Emergent contact if: you have a fever, your pain is not controlled, wound has increased drainage . "Provider Documentation" section prepared by Colby Martin. . VTE Core Measure Inpt VTE Proph given/why not?: Enoxaparin (Lovenox)SQ
--- NOTE | 2017-09-05 08:41 | DISCHARGE SUMMARY ---
DATE OF DISCHARGE: 09/05/17 DISCHARGE DIAGNOSIS: Spontaneous pneumothorax, right chest. HOSPITAL COURSE: This is a 21-year-old healthy male who had acute onset of right chest pain and was found to have a significant pneumothorax. This was not associated with any trauma. He is a nonsmoker. The patient had a small pneumocath catheter placed twice actually; however, it became dislodged and he had a small pneumothorax. I was asked to see him. CT scan showed a small bulla in the medial aspect of the right upper lobe. On 09/04/17 I took the patient to the operating room and performed an uncomplicated thoracoscopic apical bleb resection. I did not see a large bleb. He did have some thickened tissue which I suspect was the area of his bullous disease. We wedged this out without difficulty. I performed an Exparel block. I did do a limited pleurectomy apically. He tolerated the procedure quite well. He had no air leak at conclusion of the case. I placed a 16-Cymraes chest tube. He had no pneumothorax at the conclusion of the case. The following morning he had been ambulating in the hallway, tolerating a regular diet. I removed his chest tube. He was discharged home. He had two 5 mm ports and a 12 mm port. He was quite comfortable at time of this discharge. I will see him back in the office next week with a final check with an x-ray and go over his pathology. Discharge instructions were given.
[2017-09-05] MEDS ORDERED: ENOXAPARIN 40 MG/0.4 ML SYR SQ SCH (09:00)
[2017-09-05 09:35] VITALS: BP 122/60; PULSE 54; TEMP 36.4; O2SAT 95
== END 2017-09-05 10:06 | disposition home or self-care (01) | DRG 165 ==
LOC: C.EDB 13:04 → C.MSW 17:39 → EDBEDREQ 17:41 → ENRESERV 17:43
PROVIDERS: ADMIT Surgery; ATTEND Surgery
PROC: 0BHQ3YZ Insertion of Other Device into Pleura, Percutaneous Approach (ICD-10-PCS; principal; 2017-09-04 07:00)
PROC: 0BTK0ZZ Resection of Right Lung, Open Approach (ICD-10-PCS; principal; 2017-09-04 07:00)
DX: J93.83 Other pneumothorax (principal)

== ENCOUNTER → 2017-09-15 | Outpatient (CLI) | payer BC, OTHER ==
[~2017-09-15] MED LIST: AMPH15CA7 PO; FLUO20CA35 PO; ULT/50 PO
--- NOTE | 2017-09-15 10:26 | DIAGNOSTIC IMAGING REPORT ---
TWO VIEW CHEST CLINICAL HISTORY: Pneumothorax. FINDINGS: PA and lateral chest radiographs are compared to study dated 09/05/2017. The cardiomediastinal silhouette is unremarkable. The lungs and pleural spaces are clear. There is no pneumothorax. The bony thorax appears intact. IMPRESSION: 1. The lungs are clear. 2. The small right apical pneumothorax seen on 09/05/2017 is no longer identified. Electronically signed by: Gene Bradley M.D. 09/15/2017 10:24 AM Dictated Date/Time: 09/15/2017 10:23 AM
== END | disposition home or self-care (01) ==
LOC: C.RAD1850 10:11
PROVIDERS: ATTEND Surgery
DX: J93.9 Pneumothorax, unspecified (principal)